=== PATIENT | female | born 1980 | race Caucasian/White ===

== ENCOUNTER → 2016-12-31 | Outpatient (CLI) | payer MEDICAID | LOC: FIMAGING 15:58 | PROVIDERS: ATTEND Nurse Practitioner Women's Health | DX: N83.201 Unspecified ovarian cyst, right side (principal) ==

== ENCOUNTER → 2017-10-12 | Outpatient (CLI) | payer MEDICAID | LOC: FIMAGING 16:50 | PROVIDERS: ATTEND Advanced Practice Midwife | DX: R10.2 Pelvic and perineal pain (principal); R93.8 Abnormal findings on diagnostic imaging of other specified body structures; N83.291 Other ovarian cyst, right side ==

== ENCOUNTER → 2017-10-21 | Outpatient (CLI) | payer MEDICAID | LOC: FIMAGING 12:25 | PROVIDERS: ATTEND Nurse Practitioner Women's Health | PROC: BU46YZZ Ultrasonography of Uterus using Other Contrast (ICD-10-PCS; principal; 2017-10-21) | PROC: 0UJD7ZZ Inspection of Uterus and Cervix, Via Natural or Artificial Opening (ICD-10-PCS; principal; 2017-10-21) | DX: N84.0 Polyp of corpus uteri (principal); N92.0 Excessive and frequent menstruation with regular cycle ==

== ENCOUNTER → 2017-11-12 | Outpatient (CLI) | payer MEDICAID ==
[~2017-11-12] MED LIST: GADOBUTROL 10 ML VIAL IVP ONE
== END ==
LOC: FIMAGING 07:29
PROVIDERS: ATTEND Internal Medicine
DX: R93.2 Abnormal findings on diagnostic imaging of liver and biliary tract (principal); D18.03 Hemangioma of intra-abdominal structures
CPT/HCPCS: A9585

== ENCOUNTER 2018-08-20 13:34 | Emergency (ER) | payer MEDICAID ==
[2018-08-20] MEDS ORDERED: NS 1,000 ML IV ONE (13:54)
--- NOTE | 2018-08-20 13:56 | EDPHY ---
H & P Stated Complaint: abd pain/flank pain Time Seen by Provider: 08/20/18 13:50 HPI/ROS: CHIEF COMPLAINT: Right flank pain HISTORY OF PRESENT ILLNESS: The patient is a 37-year-old female who comes to the emergency department complaining of right flank pain. It began about an hour ago abruptly. Mild nausea but no vomiting. No diarrhea. No rash. She denies risk of and her last menstrual period was on August 02. No urinary symptoms. No vaginal bleeding or discharge. No trauma. She has been told in the past that she has ovarian cysts. No abdominal surgeries. Severity: Moderate Modifying factors: None REVIEW OF SYSTEMS: Constitutional: denies: chills, fever, recent illness, recent injury EENTM: denies: blurred vision, double vision, nose congestion Respiratory: denies: cough, shortness of breath Cardiac: denies: chest pain, irregular heart rate, lightheadedness, palpitations Gastrointestinal/Abdominal: See HPI denies: abdominal pain, diarrhea, nausea, vomiting, blood streaked stools Genitourinary: denies: dysuria, frequency, hematuria, pain Musculoskeletal: denies: joint pain, muscle pain Skin: denies: lesions, rash, jaundice, bruising Neurological: denies: headache, numbness, paresthesia, tingling, dizziness, weakness Hematologic/Lymphatic: denies: blood clots, easy bleeding, easy bruising Immunologic/allergic: denies: HIV/AIDS, transplant 10 systems reviewed and negative except as noted EXAM: GENERAL: Well-appearing, well-nourished and in no acute distress. HEAD: Atraumatic, normocephalic. EYES: Pupils equal round and reactive to light, extraocular movements intact, sclera anicteric, conjunctiva are normal. ENT: TMs normal, nares patent, oropharynx clear without exudates. Moist mucous membranes. NECK: Normal range of motion, supple without lymphadenopathy or JVD. LUNGS: Breath sounds clear to auscultation bilaterally and equal. No wheezes rales or rhonchi. HEART: Regular rate and rhythm without murmurs, rubs or gallops. ABDOMEN: Soft, nontender, normoactive bowel sounds. No guarding, no rebound. No masses appreciated. BACK: No CVA tenderness, no spinal tenderness, step-offs or deformities EXTREMITIES: Normal range of motion, no pitting or edema. No clubbing or cyanosis. NEUROLOGICAL: Cranial nerves II through XII grossly intact. Normal speech, normal gait. 5/5 strength, normal movement in all extremities, normal sensation , normal reflexes PSYCH: Normal mood, normal affect. SKIN: Warm, dry, normal turgor, no visible rashes or lesions. Source: Patient Exam Limitations: No limitations - Personal History LMP (Females 10-55): 8-14 Days Ago Current Tetanus/Diphtheria Vaccine: Unsure - Medical/Surgical History Hx Asthma: No Hx Chronic Respiratory Disease: No Hx Diabetes: No Hx Cardiac Disease: No Hx Renal Disease: No Hx Cirrhosis: No Hx Alcoholism: No Other PMH: kidney stones - Family History Significant Family History: No pertinent family hx - Social History Smoking Status: Never smoked Alcohol Use: None Constitutional: Initial Vital Signs Temperature (C) 36.3 C 08/20/18 13:37 Heart Rate 69 08/20/18 13:37 Respiratory Rate 18 08/20/18 13:37 Blood Pressure 121/71 H 08/20/18 13:37 O2 Sat (%) 98 08/20/18 13:37 O2 Delivery Mode Room Air Allergies/Adverse Reactions: No Known Allergies Allergy (Unverified 08/20/18 13:40) Home Medications: Medication Instructions Recorded Hydrocodone/APAP 5/325 [[place] 1 - 2 tab PO Q4H PRN #10 tab 08/20/18 5/325 (RX)] Medical Decision Making - Diagnostics Imaging Results: Imaging Impressions Pelvic/Renal Ultrasound 08/20/18 14:32 Impression: 1. Normal appearance to the endometrium, with no residual or recurrent polypoid mass, compared to previous studies in 2018. 2. There is a 6.9 cm complex right paraovarian cystic mass with papillary projections. Gynecologic consultation and correlation with a serum CA-125 level is suggested. There is no evidence of torsion or free fluid, however. Findings were discussed with JIL LOVELACE MD at 15:32, on 08/20/2018. Imaging: Discussed imaging studies w/ mail agent Radiologist ED Course/Re-evaluation: 3:40 p.m. I discussed the ultrasound results with the patient. Her pain is currently controlled to some degree. She declines further pain medication. She does not have any particular OBGYN. I will call our on-call. Radiology recommends we send a CA 125 as well. 3:43 p.m. I discussed the case with Dr. Booker who agrees and will follow-up on Wednesday and likely plan surgery. The patient is in agreement with this plan. She will accept a prescription for Vicodin but is hesitant to take it. I encouraged ibuprofen three times daily. Differential Diagnosis: Partial list of the Differential diagnosis considered include but were not limited to; ovarian cyst, ovarian cancer, ovarian torsion, kidney stone and although unlikely based on the history and physical exam, I also considered appendicitis, pyelonephritis. I discussed these differential diagnoses and the plan with the patient as well as the usual and expected course. The patient understands that the diagnosis is provisional and that in medicine we are not always correct and that further workup is often warranted. Usual and customary warnings were given. All of the patient's questions were answered. The patient was instructed to return to the emergency department should the symptoms at all worsen or return, otherwise to followup with the physician as we discussed. - Data Points Laboratory Results: Laboratory Results 08/20/18 14:10 08/20/18 14:10 08/20/18 08/20/18 08/20/18 14:10 14:10 14:10 WBC RBC Hgb Hct MCV MCH MCHC RDW Plt Count MPV Neut % (Auto) Lymph % (Auto) [place] % (Auto) Eos % (Auto) Baso % (Auto) Nucleat RBC Rel Count Absolute Neuts (auto) Absolute Lymphs (auto) Absolute Monos (auto) Absolute Eos (auto) Absolute Basos (auto) Absolute Nucleated RBC Immature Gran % Immature Gran # Sodium 137 mEq/L mEq/L (135-145) Potassium 4.4 mEq/L mEq/L (3.5-5.2) Chloride 107 mEq/L mEq/L (97-110) Carbon Dioxide 22 mEq/l mEq/l (22-31) Anion Gap 8 mEq/L mEq/L (6-14) BUN 18 mg/dL mg/dL (7-23) Creatinine 0.8 mg/dL mg/dL (0.6-1.0) Estimated GFR > 60 Glucose 94 mg/dL mg/dL (70-100) Calcium 8.8 mg/dL mg/dL (8.5-10.4) Total Bilirubin 0.2 mg/dL mg/dL (0.1-1.4) Conjugated Bilirubin 0.1 mg/dL mg/dL (0.0-0.5) Unconjugated Bilirubin 0.1 mg/dL mg/dL (0.0-1.1) AST 33 IU/L IU/L (14-46) ALT 23 IU/L IU/L (9-52) Alkaline Phosphatase 44 IU/L IU/L (38-126) Total Protein 7.0 g/dL g/dL (6.3-8.2) Albumin 4.1 g/dL g/dL (3.5-5.0) Lipase 247 IU/L IU/L (23-300) CA 125 Antigen Pending Beta HCG, Qual NEGATIVE Urine Color Urine Appearance Urine pH Ur Specific Benedict Urine Protein Urine Ketones Urine Blood Urine Nitrate Urine Bilirubin Urine Urobilinogen Ur Leukocyte Esterase Urine RBC Urine WBC Ur Epithelial Cells Urine Mucus Urine Glucose 08/20/18 08/20/18 14:10 13:55 WBC 7.50 10^3/uL 10^3/uL (3.80-9.50) RBC 4.52 10^6/uL 10^6/uL (4.18-5.33) Hgb 14.3 g/dL g/dL (12.6-16.3) Hct 41.2 % % (38.0-47.0) MCV 91.2 fL fL (81.5-99.8) MCH 31.6 pg pg (27.9-34.1) MCHC 34.7 g/dL g/dL (32.4-36.7) RDW 12.3 % % (11.5-15.2) Plt Count 279 10^3/uL 10^3/uL (150-400) MPV 9.3 fL fL (8.7-11.7) Neut % (Auto) 50.4 % % (39.3-74.2) Lymph % (Auto) 39.2 % % (15.0-45.0) [place] % (Auto) 8.8 % % (4.5-13.0) Eos % (Auto) 0.8 % % (0.6-7.6) Baso % (Auto) 0.5 % % (0.3-1.7) Nucleat RBC Rel Count 0.0 % % (0.0-0.2) Absolute Neuts (auto) 3.78 10^3/uL 10^3/uL (1.70-6.50) Absolute Lymphs (auto) 2.94 10^3/uL 10^3/uL (1.00-3.00) Absolute Monos (auto) 0.66 10^3/uL 10^3/uL (0.30-0.80) Absolute Eos (auto) 0.06 10^3/uL 10^3/uL (0.03-0.40) Absolute Basos (auto) 0.04 10^3/uL 10^3/uL (0.02-0.10) Absolute Nucleated RBC 0.00 10^3/uL 10^3/uL (0-0.01) Immature Gran % 0.3 % % (0.0-1.1) Immature Gran # 0.02 10^3/uL 10^3/uL (0.00-0.10) Sodium Potassium Chloride Carbon Dioxide Anion Gap BUN Creatinine Estimated GFR Glucose Calcium Total Bilirubin Conjugated Bilirubin Unconjugated Bilirubin AST ALT Alkaline Phosphatase Total Protein Albumin Lipase CA 125 Antigen Beta HCG, Qual Urine Color YELLOW Urine Appearance CLEAR Urine pH 5.0 (5.0-7.5) Ur Specific Benedict 1.019 (1.002-1.030) Urine Protein NEGATIVE (NEGATIVE) Urine Ketones NEGATIVE (NEGATIVE) Urine Blood NEGATIVE (NEGATIVE) Urine Nitrate NEGATIVE (NEGATIVE) Urine Bilirubin NEGATIVE (NEGATIVE) Urine Urobilinogen NEGATIVE EU EU (0.2-1.0) Ur Leukocyte Esterase NEGATIVE (NEGATIVE) Urine RBC 1-3 /hpf /hpf (0-3) Urine WBC 1-3 /hpf /hpf (0-3) Ur Epithelial Cells TRACE /lpf /lpf (NONE-1+) Urine Mucus TRACE /lpf /lpf (NONE-1+) Urine Glucose NEGATIVE (NEGATIVE) Medications Given: Discontinued Medications Sodium Chloride (Ns) 1,000 mls @ 0 mls/hr IV EDNOW ONE; Wide Open PRN Reason: Protocol Stop: 08/20/18 13:55 Last Admin: 08/20/18 14:07 Dose: 1,000 mls Ketorolac Tromethamine (Toradol) 30 mg IVP EDNOW ONE Stop: 08/20/18 15:10 Last Admin: 08/20/18 15:13 Dose: 30 mg Departure - Departure Disposition: Home, Routine, Self-Care Clinical Impression: Ovarian cyst Condition: Fair Instructions: Ovarian Cyst (ED) Additional Instructions: Call Dr. Booker on Wednesday for follow-up appointment. Make sure the office is aware that we spoke with her from the emergency department. Referrals: NONE *PRIMARY CARE P,. [Primary Care Provider] - As per Instructions Medina Booker MD [Medical Doctor] - 1-2 days without fail Prescriptions: Hydrocodone/APAP 5/325 [[place] 5/325 (RX)] 1 - 2 tab PO Q4H PRN #10 tab PRN Reason: Pain, Moderate
[2018-08-20 14:24] LABS: PLATELET COUNT 279 10^3/uL (150-400)
[2018-08-20] MEDS ORDERED: KETOROLAC 30 MG/1 ML SDV IVP ONE (15:09)
[2018-08-20 16:08] VITALS: BP 113/69
== END 2018-08-20 16:18 | disposition home or self-care (01) ==
DX: N83.201 Unspecified ovarian cyst, right side (principal); E86.9 Volume depletion, unspecified
CPT/HCPCS: 86304-90; 96374; J1885

== ENCOUNTER 2018-08-26 13:40 | Day surgery (SDC) | payer MEDICAID ==
--- NOTE | 2018-08-23 15:36 | PDGENHP ---
History and Physical - Chief Complaint Right adnexal mass, pelvic pain - History of Present Illness Denice is a 37 yo who I saw in the office for ER f/u after she was seen there on 08/20/18 for acute pelvic pain - found to have a right "paraovarian" complex cystic mass with papillary projections measuring 6.9cm in largest dimension. They did check a CA125 which came back at 24.4, normal. We discussed options and recommended LS removal of just the cyst, or potentially that whole tube on the right side if necessary. History Information - Allergies/Home Medication List Allergies/Adverse Reactions: No Known Allergies Allergy (Unverified 08/20/18 13:40) I have personally reviewed and updated: family history, medical history, social history, surgical history Past Medical History: H/o kidney stones - Surgical History Reports: no pertinent surgical hx - Family History Positive for: non-pertinent - Social History Smoking Status: Never smoked Review of Systems Review of Systems: ROS: 10pt was reviewed & negative except for what was stated in HPI & below Physical Exam Physical Exam: Constitutional: no apparent distress, appears nourished, not in pain Eyes: PERRL, anicteric sclera, EOMI Ears, Nose, Mouth, Throat: moist mucous membranes Respiratory: no respiratory distress Assessment & Plan Assessment: Preop: Diagnostic laparoscopy, removal of right adnexal cyst, possible right salpingectomy. - Routine preop orders, no abx needed. - Consents will be signed in preop day of surgery. - Long discussion in clinic regarding low suspicion for malignancy but can't be sure - normal CA125 reassuring. Plan will be to try to just isolate and remove just this cyst, intact, place it in a bag to drain and remove it, preventing rupture/spill. I did general counsel her that sometimes spillage does occur despite our best efforts. Also would like to retain her tube, but sometimes neccessary to remove it. - Likely home from PACU. KEITH
[2018-08-26] MEDS ORDERED: LR 1,000 ML IV ONE (14:06)
[2018-08-26] MEDS ORDERED: BUPIVACAINE/EPI 0.5% 30 ML SDV ONE (14:43)
--- NOTE | 2018-08-26 15:02 | PDANEPAE ---
ANE History of Present Illness Ovarian cyst ANE Past Medical History - Cardiovascular History Hx Hypertension: No Hx Arrhythmias: No Hx Chest Pain: No Hx Coronary Artery / Peripheral Vascular Disease: No Hx CHF / Valvular Disease: No Hx Palpitations: No - Pulmonary History Hx COPD: No Hx Asthma/Reactive Airway Disease: No Hx Recent Upper Respiratory Infection: No Hx Oxygen in Use at Home: No Hx Sleep Apnea: No Sleep Apnea Screening Result - Last Documented: Negative - Neurologic History Hx Cerebrovascular Accident: No Hx Seizures: No Hx Dementia: No Neurologic History Comment: OCCAS MIGRAINES - Endocrine History Hx Diabetes: No - Renal History Hx Renal Disorders: No Renal History Comment: KIDNEY STONE - Liver History Hx Hepatic Disorders: No 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 SURGICAL ANE Review of Systems Review of Systems: - Exercise capacity METS (RN): 6 METS ANE Patient History - Allergies Allergies/Adverse Reactions: No Known Allergies Allergy (Unverified 08/20/18 13:40) - Home Medications Home medications: home medication list seen and reviewed Home Medications: Herbals/Supplements -Info Only 08/24/18 [Last Taken 08/24/18 08:00] Ibuprofen 08/24/18 [Last Taken 08/24/18 08:00] - NPO status NPO Since - Liquids (Date): 08/26/18 (12:50) NPO Since - Liquids (Time): 12:50 NPO Since - Solids (Date): 08/26/18 (06:30) NPO Since - Solids (Time): 06:30 - Anes Hx Anes Hx: no prior problems - Smoking Hx Smoking Status: Never smoked - Family Anes Hx Family Hx Anesthesia Complications: NEG ANE Labs/Vital Signs - Vital Signs Blood Pressure: 114/69 Heart Rate: 63 Respiratory Rate: 18 O2 Sat (%): 97 Height: 162.56 cm Weight: 64.41 kg ANE Physical Exam - Airway Neck exam: FROM Mallampati Score: Class 2 Mouth exam: normal dental/mouth exam - Pulmonary Pulmonary: no respiratory distress - Cardiovascular Cardiovascular: regular rate and rhythym - ASA Status ASA Status: I ANE Anesthesia Plan Anesthesia Plan: general endotracheal anesthesia
[2018-08-26] MEDS ORDERED: MIDAZOLAM 2 MG/2 ML VIAL IVP ONE (15:04)
--- NOTE | 2018-08-26 15:13 | PDHPUP ---
History & Physical Update H&P update statement: This history and physical update is based on an assessment of the patient which was completed after admission or registration (within 24 hours), but prior to the surgery/procedure. H&P update: H&P reviewed & patient examined
[2018-08-26] MEDS ORDERED: ROCURONIUM 50 MG/5 ML VIAL ONE (15:18)
[2018-08-26] MEDS ORDERED: fentaNYL 100 MCG/2 ML INJ ONE ×3 (15:19→16:58)
[2018-08-26] MEDS ORDERED: PROPOFOL 200 MG/20 ML VIAL ONE (15:20)
[2018-08-26] MEDS ORDERED: METHYLENE BLUE 0.5% 50 MG/10 ML AMP ONE (15:58)
[2018-08-26] MEDS ORDERED: NALOXONE HCL 0.4 MG/ML INJ IVP PRN (16:19)
[2018-08-26] MEDS ORDERED: PROMETHAZINE HCL 25 MG/ML INJ IVP PRN (16:19)
[2018-08-26] MEDS ORDERED: ONDANSETRON 4 MG/2 ML VIAL IVP PRN (16:19)
[2018-08-26] MEDS ORDERED: HYDROmorphONE/DILAUDID 1 MG/ML INJ IVP PRN (16:19)
[2018-08-26] MEDS ORDERED: SUGAMMADEX SODIUM 200 MG/2 ML VIAL IVP ONE (16:43)
--- NOTE | 2018-08-26 16:57 | POSTANESTH ---
Post Anesthetic Evaluation Cardiovascular Status: Similar to Pre-Op Cond Respiratory Status: Similar to Pre-op Cond. Level of Consciousness/Mental Status: Alert and Oriented Pain Control: Adequate, Prn Tx Ordered Nausea/Vomiting Control: Adequate, Prn Tx Ordered Complications Possibly Related to Anesthesia: None Noted
[2018-08-26] MEDS: fentaNYL 100 MCG/2 ML INJ IVP PRN ×2 (17:01→17:12)
--- NOTE | 2018-08-26 17:10 | POSTOPPROG ---
Post Op Note Date of Operation: 08/26/18 Surgeon: Heath Valdez Fabrication Inspector: Medina Booker Anesthesia: GET(General Endotracheal) Pre-op Diagnosis: Acute RLQ pelvic pain, para-ovarian cyst Post-op Diagnosis: Right paraovarian cyst, hemorrhagic Procedure: Dx laparoscopy, Right LS salpingectomy w removal of cyst, Chromopertubation Findings: Dilated, hemorrhagic, distorted R tube and cyst, normal right ovary. Inf/Abcess present in the surg proc area at time of surgery?: No EBL: Minimal (25cc) Complications: None Specimen(s): Right fallopian tube and paratubal cyst
--- NOTE | 2018-08-26 17:11 | SUROPNOTE ---
[facility] Operative Report - Surgery Date of Operation: 08/26/18 Surgeon: Heath Valdez Malariologist: Medina Booker Anesthesia: GET(General Endotracheal) Pre-op Diagnosis: Acute RLQ pelvic pain, para-ovarian cyst Post-op Diagnosis: Right paraovarian cyst, hemorrhagic Procedure: 1. Dx laparoscopy 2. Right LS salpingectomy w removal of cyst 3. Chromopertubation Findings: 1. Dilated, hemorrhagic, distorted R tube and associated paratubal cyst 2. R ovary normal with few adhesions to ovarian fossa 3. Left ovary normal, left tube tortuous, involved in adhesions to left ovary and nearby colon. 4. Patent left tube on chromopertubation 5. Normal appendix 6. Normal appearance of liver and gallbladder 7. Few adhesions right upper quadrant, omentum to sidewall Inf/Abcess present in the surg proc area at time of surgery?: No EBL: Minimal (25cc) Complications: None Specimen(s): Right fallopian tube and paratubal cyst Technique: The patient was brought to the operating room where she was ergonomically positioned in low lithotomy position in Santiago stirrups. General anesthesia was established without issue. The arms were tucked at the patients side with care to not generate any pressure points. She was prepped and draped in standard fashion after a time-out was performed. An acorn was placed on the cervix to assist with uterine manipulation and for chromopertubation. A murcia catheter was placed under sterile conditions. No abx were indicated, none were given. A 10mm vertical incision was made in the base of the umbilicus after injection of local anesthetic. The anterior abdominal wall was lifted as the Veress needle was carefully inserted into the abdomen at a 45% angle from vertical. Intraabdominal placement was confirmed with hanging drop test and low initial insufflation pressures. Once the abdomen was adequately insufflated with CO2 gas the Veress was removed and a 10mm Optiview non-bladed trocar was introduced into the abdomen without complication under direct visualization with the camera within the trocar. Once inside a brief scan of the abdomen revealed no injuries upon entry. At this point 2 additional 5mm ports were placed in the bilateral lower quadrants after injection of local. Additional pictures were taken of intra-abdominal organs/structures as noted in findings. The right tube was markedly distorted, congested - stemming from large hemorrhagic paratubal cyst. That tube was not salvageable so decision was made to remove the entire tube with the cyst. The mass was deviated medially and amputated using the Ligasure and then placed in 10mm Endocatch bag. The bag was brought to the skin at the umbilical port site and we began to remove tissue from the bag in a controlled manner but during this process the plastic Endocatch bag tore allowing a small remaining portion of the mass to fall back into the abdomen. We inserted another different Kevlar bag, placed the specimen within, and then successfully remove the specimen and bag together. We lastly did perform chromopertubation and confirmed that that left tube was patent, positive spill of Methylene blue stained saline. The umbilical trocar was then removed and fascia closed with 0-vicryl, two interrupted simple sutures , placed laparoscopically with FlexEnergy device. To conclude the pelvis was copiously irrigated and complete hemostasis was noted , even with lowered intra-abdominal pressure. All trocars were removed, gas was allowed to escape the abdomen, and skin incisions closed with single subcuticular stitches of 4-0 monocryl and then covered with Dermabond. The pt was extubated uneventfully and taken to the PACU in stable condition. Lap, needle and instrument counts were announced as correct at the conclusion of the case. I was scrubbed and present for the entire procedure.
[2018-08-26] MEDS ORDERED: KETOROLAC 30 MG/1 ML SDV IVP ONE (17:13)
[2018-08-26] MEDS ORDERED: KETOROLAC 30 MG/1 ML SDV ONE (17:17)
[2018-08-26 18:37] VITALS: BP 107/79
== END 2018-08-26 18:55 | disposition home or self-care (01) ==
LOC: FSGY 13:40
PROVIDERS: ATTEND Obstetrics & Gynecology
PROC: 0UT54ZZ Resection of Right Fallopian Tube, Percutaneous Endoscopic Approach (ICD-10-PCS; principal; 2018-08-26 15:15)
PROC: 3E0P8KZ Introduction of Other Diagnostic Substance into Female Reproductive, Via Natural or Artificial Opening Endoscopic (ICD-10-PCS; principal; 2018-08-26 15:15)
DX: N83.8 Other noninflammatory disorders of ovary, fallopian tube and broad ligament (principal)
CPT/HCPCS: J1885; J2250; J2704; J3010; Q9968

== ENCOUNTER 2018-09-18 12:21 | Emergency (ER) | payer MEDICAID ==
--- NOTE | 2018-09-18 12:57 | EDPHY ---
H & P Time Seen by Provider: 09/18/18 12:30 HPI/ROS: CHIEF COMPLAINT: Dizziness HISTORY OF PRESENT ILLNESS: 37-year-old woman awakened at 7:30 a.m. With dizziness. She describes it as a sense of spinning or movement which is worse with her eyes looking to the right, associated with an episode of vomiting at home. Symptoms were severe but now are mild and almost gone. Not associated with neck stiffness or recent injury or chiropractic, no trauma. No weakness or numbness in extremities. She did have a mild headache when she woke up which is still present, bilateral. REVIEW OF SYSTEMS: Eye: No double vision but a little bit of blurriness and difficulty focusing this morning ENT: No tinnitus or hearing loss Cardiac: no chest pain or syncope Pulmonary: no cough or SOB Abdomen: No abdominal pain Musculoskeletal: No neck stiffness Skin: no rash Neuro: HPI Constitutional: no fever : no urinary symptoms A comprehensive 10 point review of systems is otherwise negative aside from elements mentioned in the history of present illness. PAST MEDICAL HISTORY: Kidney stones Social history: No local PCP General Appearance: Alert and conversant, cooperative. Eyes: No scleral icterus. Pupils equal reactive extraocular motion intact with horizontal nystagmus looking to the right which duplicates her symptoms. ENT, Mouth: Normal mucous membranes. Cerumen in both ears, tympanic membranes not visualized. Respiratory: Normal respiratory effort, breath sounds equal, lungs are clear to auscultation. Cardiovascular: Regular rate and rhythm. Gastrointestinal: Abdomen is soft and non tender. Neurological: Alert, face symmetric, normal motor and sensory in extremities. [id number] normal bilaterally, no pronator drift, speech fluent, Romberg negative, can walk on heels and toes, normal mentation. Skin: Warm and dry, no rashes. Musculoskeletal: No neck stiffness. Psychiatric: Not agitated. Emergency Department course/MDM: Likely peripheral in not central vertigo given normal neurologic exam and provoked dizziness which extinguishes. CT head discussed and consented because she does have a headache. Differential diagnosis considered for dizziness including but not limited to peripheral and central causes of vertigo, cerebellar stroke, vertebral artery dissection, orthostatic causes including dehydration, and blood loss. 1340: CT negative per [facility]. Discussed the patient, she is comfortable going home, she declined any acute therapy in the emergency department. Smoking Status: Never smoked Constitutional: Initial Vital Signs Temperature (C) 36.7 C 09/18/18 12:26 Heart Rate 74 09/18/18 12:26 Respiratory Rate 16 09/18/18 12:26 Blood Pressure 109/74 09/18/18 12:26 O2 Sat (%) 95 09/18/18 12:26 O2 Delivery Mode Room Air Allergies/Adverse Reactions: No Known Allergies Allergy (Verified 09/18/18 12:25) Home Medications: Medication Instructions Recorded Hydrocodone/APAP 5/325 [[place] 1 - 2 tab PO Q4H PRN #10 tab 08/20/18 5/325 (*)] Herbals/Supplements -Info Only 08/24/18 Ibuprofen 08/24/18 Meclizine HCl [Meclizine HCl 25 mg 25 mg PO Q6 PRN #20 tab 09/18/18 (RX,OTC)] Ondansetron Odt [Zofran Odt] 4 mg PO Q4PRN #6 tab 09/18/18 Medical Decision Making - Diagnostics Imaging Results: Imaging Impressions Head CT 09/18/18 12:52 Impression: 1. Normal CT brain without contrast. 2. No sinusitis. 3. Consider MRI of the brain, if there is continued clinical concern. Findings and recommendations discussed with Emergency Department physician, NASEEM GILES at 13:44 hour, 09/18/2018. Final report concurs with initial preliminary interpretation. Imaging: Discussed imaging studies w/ call worker person Radiologist Departure - Departure Disposition: Home, Routine, Self-Care Clinical Impression: Vertigo Condition: Good Instructions: Meclizine (By mouth), Ondansetron (By mouth), Vertigo (ED) Additional Instructions: Negative head CT. Likely peripheral vertigo. Please follow-up with Neurology in the office this week if not improving. Referrals: Benjamin Hopkins MD [Medical Doctor] - As per Instructions Prescriptions: Meclizine HCl [Meclizine HCl 25 mg (RX,OTC)] 25 mg PO Q6 PRN #20 tab PRN Reason: Dizziness Ondansetron Odt [Zofran Odt] 4 mg PO Q4PRN #6 tab
[2018-09-18 13:47] VITALS: BP 106/74
== END 2018-09-18 13:56 | disposition home or self-care (01) ==
DX: R42 Dizziness and giddiness (principal)

== ENCOUNTER → 2018-09-29 | Outpatient (CLI) | payer MEDICAID | LOC: FIMAGING 09:41 | PROVIDERS: ATTEND Physician Assistant | DX: M23.92 Unspecified internal derangement of left knee (principal); M76.32 Iliotibial band syndrome, left leg ==